=== PATIENT | male | born 1960 | race African-American/Black ===

== ENCOUNTER 2016-12-06 15:49 | Inpatient (IN) | payer OTHER ==
[2016-12-06 17:42] VITALS: BMI 20.5
[2016-12-06] MEDS ORDERED: diazePAM 5 MG TABLET PO ONE (20:05)
[2016-12-06] MEDS ORDERED: LOPERAMIDE HCL 2 MG CAPSULE PO PRN (20:05)
[2016-12-06] MEDS ORDERED: diphenhydrAMINE HCL 50 MG CAPSULE PO PRN (20:05)
[2016-12-06] MEDS ORDERED: MAGNESIUM HYDROX 2400MG/30ML ORAL SUSPENSION 30 ML CUP PO PRN (20:05)
[2016-12-06] MEDS ORDERED: MAGNESIUM CITRATE 300 ML BOTTLE PO PRN (20:05)
[2016-12-06] MEDS ORDERED: guaiFENesin/D-METHORPHAN HB 10 ML UNIT-DOSE CUPS PO PRN (20:05)
[2016-12-06] MEDS ORDERED: ACETAMINOPHEN 325 MG TABLET (FP) PO PRN (20:05)
[2016-12-06] MEDS ORDERED: hydrOXYzine PAMOATE 50 MG CAPSULE (FP) PO PRN (20:05)
[2016-12-06] MEDS ORDERED: P-EPHED 60MG/TRIPROLIDI 2.5MG TABLET PO PRN (20:05)
[2016-12-06] MEDS ORDERED: MENTHOL/PHENOL 1 EACH UD MM PRN (20:05)
[2016-12-06] MEDS ORDERED: MAG HYDROX/AL HYDROX/SIMETH 30 ML UNIT-DOSE CUP PO PRN (20:05)
--- NOTE | 2016-12-06 20:05 | HP ---
CIWA Score - CIWA Score Nausea/Vomitin-Mild Nausea/No Vomiting Muscle Tremors: 4-Moderate,w/Arms Extend Anxiety: 4-Mod. Anxious/Guarded Agitation: 4-Moderately Restless Paroxysmal Sweats: 1-Minimal Palms Moist Orientation: 0-Oriented Tacttile Disturbances: 0-None Auditory Disturbances: 0-None Visual Disturbances: 0-None Headache: 2-Mild CIWA-Ar Total Score: 16 Admission ROS BHS - HPI Chief Complaint: withdrawal sx Allergies/Adverse Reactions: Allergies Allergy/AdvReac Type Severity Reaction Status Date / Time chlordiazepoxide HCl Allergy Severe Swelling Verified 03/09/12 15:52 [From Librium] History of Present Illness: 56 years old male with long history of alcohol asthma copd, hiv positive ppd alcohol induced seizure and depression is admitted to detox Exam Limitations: No Limitations - Ebola screening Have you traveled outside of the country in the last 21 days: No Have you had contact with anyone from an Ebola affected area: No Have you been sick,other than usual withdrawal symptoms: No Do you have a fever: No - Review of Systems Constitutional: Loss of Appetite, Changes in sleep, Unintentional Wgt. Loss, Unexplained wgt Loss EENT: reports: Blurred Vision (eye glasss) Respiratory: reports: SOB with Exertion Cardiac: reports: No Symptoms Reported GI: reports: Nausea, Poor Appetite, Poor Fluid Intake, Abdominal cramping : reports: No Symptoms Reported Musculoskeletal: reports: Back Pain (chronic back pain - muscle spasm -) Integumentary: reports: No Symptoms Reported Neuro: reports: Seizure (10/2016), Tremors Endocrine: reports: No Symptoms Reported Hematology: reports: No Symptoms Reported Psychiatric: reports: Judgement Intact, Orientated x3, Depressed Other Systems: Reviewed and Negative Patient History - Patient Medical History Hx Anemia: No Hx Asthma: Yes Hx Chronic Obstructive Pulmonary Disease (COPD): Yes Hx Cancer: No Hx Cardiac Disorders: No Hx Congestive Heart Failure: No Hx Hypertension: No Hx Hypercholesterolemia: No Hx Pacemaker: No HX Cerebrovascular Accident: No Hx Seizures: Yes (hx of seizures not on meds. Last was in 1984) Hx Dementia: No Hx Diabetes: No Hx Gastrointestinal Disorders: No Hx Liver Disease: No Hx Genitourinary Disorders: No Hx Sexually Transmitted Disorders: No Hx Renal Disease (ESRD): No Hx Thyroid Disease: No Hx Human Immunodeficiency Virus (HIV): Yes (DX POSITIVE ON 11/06/93) Hx Hepatitis C: No Hx Depression: Yes Hx Suicide Attempt: No Hx Bipolar Disorder: No Hx Schizophrenia: No - Patient Surgical History Past Surgical History: No Hx Neurologic Surgery: No Hx Cataract Extraction: No Hx Cardiac Surgery: No Hx Lung Surgery: No Hx Breast Surgery: No Hx Breast Biopsy: No Hx Abdominal Surgery: No Hx Appendectomy: No Hx Cholecystectomy: No Hx Genitourinary Surgery: No Hx Orthopedic Surgery: No - PPD History Previous Implant?: Yes Documented Results: Positive w/o proof Implanted On Prior R Admission?: No PPD to be Administered?: No - Smoking Cessation Smoking history: Former smoker Have you smoked in the past 12 months: No Aproximately how many cigarettes per day: 0 If you are a former smoker, when did you quit?: 5 months ago Hx Chewing Tobacco Use: No Initiated information on smoking cessation: No - Substance & Tx. History Hx Alcohol Use: Yes Hx Substance Use: No Substance Use Type: Alcohol Hx Substance Use Treatment: Yes (07/2016 [facility]) - Substances Abused Alcohol Route: Oral Frequency: Daily Amount used: 1 pint fadi or vodka Age of first use: 11 Date of Last Use: 12/05/16 Family Disease History - Family Disease History Family Disease History: Other: Father () Admission Physical Exam S - Vital Signs Vital Signs: Vital Signs - 24 hr 12/06/16 17:35 Temperature 96.5 F L Pulse Rate 106 H Respiratory 16 Rate Blood Pressure 127/78 - Physical General Appearance: Yes: Appropriately Dressed, Mild Distress, Thin, Tremorous, Irritable, Sweating, Anxious HEENTM: Yes: Hearing grossly Normal, Normal ENT Inspection, Normocephalic, Normal Voice, Other (eye glasses) Respiratory: Yes: Chest Non-Tender, No Respiratory Distress, No Accessory Muscle Use, Wheezing, Hyperresonant, Inspiration Neck: Yes: Supple, Trachea in good position Breast: Yes: Breasts Symetrical Cardiology: Yes: Regular Rhythm, S1, S2, Tachycardia Abdominal: Yes: Non Tender, Soft, Increased Bowel Sounds Genitourinary: Yes: Within Normal Limits Back: Yes: Normal Inspection Musculoskeletal: Yes: full range of Motion, Gait Steady, Back pain Extremities: Yes: Normal Inspection, Normal Range of Motion, Non-Tender, Tremors Neurological: Yes: Fully Oriented, Alert, Motor Strength 5/5, Normal Response, Depressed Affect Integumentary: Yes: Warm Lymphatic: Yes: Within Normal Limits - Diagnostic (1) Asthma Current Visit: Yes Status: Chronic (2) Alcohol dependence with uncomplicated withdrawal Current Visit: Yes Status: Acute (3) COPD (chronic obstructive pulmonary disease) Current Visit: Yes Status: Chronic Qualifiers: COPD type: emphysema Emphysema type: unilateral Qualified Code(s ): J43.0 - Unilateral pulmonary emphysema [MacLeod's syndrome] (4) HIV (human immunodeficiency virus infection) Current Visit: Yes Status: Chronic (5) Positive PPD, treated Current Visit: Yes Status: Resolved (6) Weight loss Current Visit: Yes Status: Acute (7) Seizure Current Visit: Yes Status: Inactive (8) Depression (emotion) Current Visit: Yes Status: Suspected Qualifiers: Depression Type: dysthymia Qualified Code(s): F34.1 - Dysthymic disorder Cleared for Admission S - Detox or Rehab [facility] Level of Care: Medically Managed Detox Regimen/Protocol: Valium [facility] Breath Alcohol Content Breath Alcohol Content: 0 Urine Drug Screen - Results Drug Screen Negative: No Urine Drug Screen Results: TCA-Tricyclic Antidepress
[2016-12-06] MEDS ORDERED: ALBUTEROL SO4 6.7 GM HFA INHALER IH PRN (20:08)
[2016-12-06] MEDS ORDERED: ALBUTEROL SO4 2.5/IPRATROPIUM 0.5 INH SOL 3 ML VIAL.NEB. NEB PRN (20:08)
[2016-12-06] MEDS: diazePAM 5 MG TABLET PO SCH (22:24)
[2016-12-06] MEDS: BUDESONIDE/FORMETEROL FUMARATE 80/4.5 mcg INHALER IH SCH (22:24)
[2016-12-06] MEDS: THIAMINE HCL 100 MG TABLET (FP) PO SCH (22:44)
[2016-12-06 23:13] LABS: URINE APPEARANCE CLEAR; URINE BILIRUBIN NEGATIVE (NEGATIVE); URINE BLOOD NEGATIVE (NEGATIVE); URINE COLOR YELLOW; URINE GLUCOSE (UA) NEGATIVE (NEGATIVE); URINE KETONE NEGATIVE (NEGATIVE); URINE LEUK ESTERASE TRACE (NEGATIVE); URINE NITRITE NEGATIVE (NEGATIVE); URINE PROTEIN NEGATIVE (NEGATIVE); URINE UROBILINOGEN 4.0 E.U/dl mg/dL (0.2-1.0)
[2016-12-06 23:20] LABS: URINE MUCUS RARE; URINE RBC <1 /hpf (0-3); URINE WBC 7 /hpf (3-5)
[2016-12-07] MEDS: diazePAM 5 MG TABLET PO SCH ×3 (05:47→22:24)
[2016-12-07 10:09] LABS: MCH 33.1 pg (25.7-33.7); MCHC 34.6 g/dl (32.0-35.9); MEAN CELL VOLUME 95.8 fl (80-96); MEAN PLT VOLUME 8.6 fl (7.5-11.1); PLATELET COUNT 241 K/MM3 (134-434); RDW 14.7 % (11.9-15.9); WHITE BLOOD COUNT 5.5 K/mm3 (4.0-10.0)
[2016-12-07] MEDS: PRENATAL VITAMINS W/ FOLIC ACID TABLET (FP) PO SCH (10:14)
[2016-12-07] MEDS: PATIENT'S OWN MEDICATION (NON-FORMULARY) (Mometasone/Formoterol [Dulera 200 Mcg/5 Mcg Inha IH SCH ×2 (10:14→22:24)
[2016-12-07] MEDS: PATIENT'S OWN MEDICATION (NON-FORMULARY) (Darunavir/Cobicistat [Prezcobix 800 Mg-150 Mg Ta PO SCH (10:14)
[2016-12-07] MEDS: diazePAM 5 MG TABLET PO PRN (10:15)
[2016-12-07] MEDS: BUDESONIDE/FORMETEROL FUMARATE 80/4.5 mcg INHALER IH SCH (10:17)
--- NOTE | 2016-12-07 10:52 | PN ---
S CIWA - CIWA Score Nausea/Vomitin-No Nausea/No Vomiting Muscle Tremors: 4-Moderate,w/Arms Extend Anxiety: 3 Agitation: 4-Moderately Restless Paroxysmal Sweats: 3 Orientation: 0-Oriented Tacttile Disturbances: 0-None Auditory Disturbances: 0-None Visual Disturbances: 0-None Headache: 0-None Present CIWA-Ar Total Score: 14 BHS Progress Note (SOAP) Subjective: shakes sweats interrupted sleep agitation anxiety nausea Objective: 12/07/16 10:51 Vital Signs Temperature 96.6 F L 12/07/16 10:31 Pulse Rate 105 H 12/07/16 10:31 Respiratory Rate 18 12/07/16 10:31 Blood Pressure 121/85 12/07/16 10:31 O2 Sat by Pulse Oximetry (%) Laboratory Tests 12/06/16 12/07/16 23:00 07:00 WBC 5.5 RBC 3.59 L Hgb 11.9 Hct 34.4 L MCV 95.8 MCH 33.1 MCHC 34.6 RDW 14.7 Plt Count 241 MPV 8.6 Urine Color Yellow Urine Appearance Clear Urine pH 7.0 Ur Specific [place] 1.015 Urine Protein Negative Urine Glucose (UA) Negative Urine Ketones Negative Urine Blood Negative Urine Nitrite Negative Urine Bilirubin Negative Urine Urobilinogen 4.0 e.u/dl Ur Leukocyte Esterase Trace Urine RBC <1 Urine WBC 7 Ur Epithelial Cells Rare Urine Mucus Rare labs pending awake/alert ambulating no acute distress Assessment: 12/07/16 10:51 withdrawal sx Plan: continue detox increase fluids jonathan arreguinn
--- NOTE | 2016-12-07 10:54 | PN ---
S Progress Note Note: discussion with pt regarding the rest of medication for his antiviral regimen; pt states he did not bring his tivicay. pt was advised that during his stay he can be on isentress with the prezcobix he brought in until his detox is completed. Pt states he can take the Isentress and will go back to his tivicay when he gets home.
[2016-12-07 10:56] LABS: ALBUMIN 3.2 g/dl (3.4-5.0); ALK PHOS 80 U/L (45-117); ANION GAP 10 (8-16); BILIRUBIN,TOTAL 1.9 mg/dL (0.2-1.0); CO2 29 mmol/L (21-32); CREATININE 0.7 mg/dL (0.7-1.3); GLUCOSE,RANDOM 79 mg/dL (74-106); SGOT/AST 23 U/L (15-37); SGPT/ALT 15 U/L (12-78); TOT PROT 6.7 g/dl (6.4-8.2)
[2016-12-07] MEDS ORDERED: RALTEGRAVIR POTASSIUM 400 MG TAB PO ONE (11:30)
--- NOTE | 2016-12-07 12:03 | PN ---
BHS Progress Note Note: potassium 2.8; k-dur 40meq x 5 days ordered
[2016-12-07] MEDS: POTASSIUM CHLORIDE TABS 20 MEQ TABLET.ER (FP) PO SCH (12:30)
--- NOTE | 2016-12-07 14:00 | CONSULT ---
[facility] Psychiatric Consult - Data Date of interview: 12/07/16 Admission source: [facility] Identifying data: Readmission to [facility] for this 56 y/o AA male seeking detox treatment on for alcohol dependence.Patient is single,a father of two,domiciled,unemployed and supported on [facility] benefits. Substance Abuse History: Confirmed by patient. Smoking Cessation. Smoking history: Former smoker. Have you smoked in the past 12 months: No. Aproximately how many cigarettes per day: 0. If you are a former smoker, when did you quit?: 5 months ago. Hx Chewing Tobacco Use: No. Initiated information on smoking cessation: No. - Substance & Tx. History. Hx Alcohol Use: Yes. Hx Substance Use: No. Substance Use Type: Alcohol. Hx Substance Use Treatment: Yes (07/2016 [facility] - Substances Abused. Alcohol. Route: Oral. Frequency: Daily. Amount used: 1 pint fadi or vodka. Age of first use: 11. Date of Last Use: 12/05/16 Medical History: Bronchial asthma,COPD,HIV infection since 1993 and a distant history of withdrawal-related seizures. Psychiatric History: Patient denies psychiatric hospitalizations.Mr Moore sees a therapist at the [facility] for supportive therapy.During medical treatment at [facility] a few months ago,the patient was seen by a [facility]ia[facility] psychiatrist and prescribed remeron for insomnia.No history of suicide attempts. Physical/Sexual Abuse/Trauma History: Patient denies. Additional Comment: Urine Drug Screen Results: TCA-Tricyclic Antidepressant.Noted. Mental Status Exam - Mental Status Exam Alert and Oriented to: Time, Place, Person Cognitive Function: Good Patient Appearance: Well Groomed Mood: Hopeful, Euthymic Affect: Appropriate, Normal Range Patient Behavior: Appropriate, Cooperative Speech Pattern: Clear Voice Loudness: Normal Thought Process: Intact, Goal Oriented Thought Disorder: Not Present Hallucinations: Denies Suicidal Ideation: Denies Homicidal Ideation: Denies Insight/Judgement: Poor Sleep: Poorly, Difficulty falling asleep Appetite: Good Muscle strength/Tone: Normal Gait/Station: Normal Psychiatric Findings - Problem List ([place] 1, 2,3) (1) Alcohol dependence with uncomplicated withdrawal Current Visit: Yes Status: Acute (2) Asthma Current Visit: Yes Status: Chronic (3) COPD (chronic obstructive pulmonary disease) Current Visit: Yes Status: Chronic Qualifiers: COPD type: emphysema Emphysema type: unilateral Qualified Code(s ): J43.0 - Unilateral pulmonary emphysema [MacLeod's syndrome] (4) HIV (human immunodeficiency virus infection) Current Visit: Yes Status: Chronic (5) EMPHYSEMA Current Visit: Yes Status: Active (6) Insomnia Current Visit: Yes Status: Acute - Initial Treatment Plan Initial Treatment Plan: Psychoeducation.Detoxification.Remeron 15 mg po hs ( confirmed by recent pharmacy claims).Side effects/benefits discussed with the patient.He agrees with careplan.Observation.
[2016-12-07] MEDS: THIAMINE HCL 100 MG TABLET (FP) PO SCH (22:23)
[2016-12-07] MEDS: RALTEGRAVIR POTASSIUM 400 MG TAB PO SCH (22:23)
[2016-12-07] MEDS: MIRTAZAPINE 15 MG TABLET (FP) PO SCH (22:23)
--- NOTE | 2016-12-08 10:05 | PN ---
[facility] CIWA - CIWA Score Nausea/Vomitin-No Nausea/No Vomiting Muscle Tremors: 3 Anxiety: 3 Agitation: 3 Paroxysmal Sweats: 3 Orientation: 0-Oriented Tacttile Disturbances: 0-None Auditory Disturbances: 0-None Visual Disturbances: 0-None Headache: 0-None Present CIWA-Ar Total Score: 12 S Progress Note (SOAP) Subjective: agitation sweats interrupted Objective: 12/08/16 10:30 Vital Signs Temperature 97.2 F L 12/08/16 06:41 Pulse Rate 94 H 12/08/16 10:08 Respiratory Rate 20 12/08/16 10:08 Blood Pressure 134/96 12/08/16 10:08 O2 Sat by Pulse Oximetry (%) Laboratory Tests 12/06/16 12/07/16 12/07/16 23:00 07:00 07:00 WBC 5.5 RBC 3.59 L Hgb 11.9 Hct 34.4 L MCV 95.8 MCH 33.1 MCHC 34.6 RDW 14.7 Plt Count 241 MPV 8.6 Sodium 140 Potassium 2.8 L* Chloride 101 Carbon Dioxide 29 Anion Gap 10 BUN 6 L Creatinine 0.7 Creat Clearance w eGFR > 60 Random Glucose 79 Calcium 9.0 Total Bilirubin 1.9 H D AST 23 D ALT 15 Alkaline Phosphatase 80 Total Protein 6.7 Albumin 3.2 L Urine Color Yellow Urine Appearance Clear Urine pH 7.0 Ur Specific [place] 1.015 Urine Protein Negative Urine Glucose (UA) Negative Urine Ketones Negative Urine Blood Negative Urine Nitrite Negative Urine Bilirubin Negative Urine Urobilinogen 4.0 e.u/dl Ur Leukocyte Esterase Trace Urine RBC <1 Urine WBC 7 Ur Epithelial Cells Rare Urine Mucus Rare RPR Titer 12/07/16 07:00 WBC RBC Hgb Hct MCV MCH MCHC RDW Plt Count MPV Sodium Potassium Chloride Carbon Dioxide Anion Gap BUN Creatinine Creat Clearance w eGFR Random Glucose Calcium Total Bilirubin AST ALT Alkaline Phosphatase Total Protein Albumin Urine Color Urine Appearance Urine pH Ur Specific [place] Urine Protein Urine Glucose (UA) Urine Ketones Urine Blood Urine Nitrite Urine Bilirubin Urine Urobilinogen Ur Leukocyte Esterase Urine RBC Urine WBC Ur Epithelial Cells Urine Mucus RPR Titer Nonreactive potassium 2.8; k-dur 40meq ordered cbc ordered awake/alert ambulating no acute distress Assessment: 12/08/16 10:31 withdrawal sx Plan: continue detox increase fluids f/u pending labs
[2016-12-08] MEDS: PRENATAL VITAMINS W/ FOLIC ACID TABLET (FP) PO SCH (10:14)
[2016-12-08] MEDS: PATIENT'S OWN MEDICATION (NON-FORMULARY) (Mometasone/Formoterol [Dulera 200 Mcg/5 Mcg Inha IH SCH ×2 (10:14→22:28)
[2016-12-08] MEDS: PATIENT'S OWN MEDICATION (NON-FORMULARY) (Darunavir/Cobicistat [Prezcobix 800 Mg-150 Mg Ta PO SCH (10:15)
[2016-12-08] MEDS: POTASSIUM CHLORIDE TABS 20 MEQ TABLET.ER (FP) PO SCH (10:15)
[2016-12-08] MEDS: diazePAM 5 MG TABLET PO SCH ×2 (10:15→22:27)
[2016-12-08] MEDS: RALTEGRAVIR POTASSIUM 400 MG TAB PO SCH ×2 (10:15→22:27)
[2016-12-08] MEDS: diazePAM 5 MG TABLET PO PRN (17:13)
[2016-12-08] MEDS: THIAMINE HCL 100 MG TABLET (FP) PO SCH (22:27)
[2016-12-08] MEDS: MIRTAZAPINE 15 MG TABLET (FP) PO SCH (22:27)
--- NOTE | 2016-12-09 09:25 | PN ---
[facility] Progress Note Note: pt states his mother is sick with a possible stroke and wants to signed out AMA. pt was advised that blood was drawn this morning to make sure that his potassium has increased since k-dur was ordered however, pt refused to stay for results but indicated that if there are any concerns to please call him at [phone] (home). pt also states that his potassium has been low in the past and has potassium at home.
--- NOTE | 2016-12-09 09:30 | DS ---
[facility] Detox Discharge Summary Admission Date: 12/06/16 - History Present History: Alcohol Dependence - Physical Exam Results Vital Signs: Vital Signs Temperature 98.1 F 12/09/16 06:44 Pulse Rate 89 12/09/16 06:44 Respiratory Rate 18 12/09/16 06:44 Blood Pressure 109/69 12/09/16 06:44 O2 Sat by Pulse Oximetry (%) - Medication Discharge Medications: Ambulatory Orders Albuterol Sulfate Inhaler - [Ventolin HFA Inhaler -] 2 inh IH Q4H PRN 03/09/12 Darunavir/Cobicistat [Prezcobix 800 mg-150 mg Tablet] 1 each PO DAILY 12/06/16 Mometasone/Formoterol [Dulera 200 Mcg/5 Mcg Inhaler] 2 inh IH BID 12/06/16 Potassium Chloride [K-Dur -] 20 meq PO BID 12/06/16 Mirtazapine [Remeron -] 15 mg PO HS #30 tablet 12/07/16 - Diagnosis (1) Alcohol dependence with uncomplicated withdrawal Current Visit: Yes Status: Chronic (2) Asthma Current Visit: Yes Status: Chronic (3) COPD (chronic obstructive pulmonary disease) Current Visit: Yes Status: Chronic Qualifiers: COPD type: emphysema Emphysema type: unilateral Qualified Code(s ): J43.0 - Unilateral pulmonary emphysema [MacLeod's syndrome] (4) HIV (human immunodeficiency virus infection) Current Visit: Yes Status: Chronic (5) Depression (emotion) Current Visit: Yes Status: Suspected Qualifiers: Depression Type: dysthymia Qualified Code(s): F34.1 - Dysthymic disorder (6) Positive PPD, treated Current Visit: Yes Status: Chronic (7) Seizure Current Visit: Yes Status: Inactive (8) EMPHYSEMA Current Visit: Yes Status: Chronic (9) Seizure disorder Current Visit: No Status: Suspected - AMA Did Patient Leave Against Medical Advice: Yes (going home)
[2016-12-09 09:37] VITALS: BP 122/81; PULSE 111; TEMP 95.4
[2016-12-09] MEDS: POTASSIUM CHLORIDE TABS 20 MEQ TABLET.ER (FP) PO SCH (09:47)
[2016-12-09] MEDS: diazePAM 5 MG TABLET PO SCH (09:47)
[2016-12-09] MEDS: PRENATAL VITAMINS W/ FOLIC ACID TABLET (FP) PO SCH (09:47)
[2016-12-09] MEDS: PATIENT'S OWN MEDICATION (NON-FORMULARY) (Darunavir/Cobicistat [Prezcobix 800 Mg-150 Mg Ta PO SCH (09:47)
[2016-12-09] MEDS: RALTEGRAVIR POTASSIUM 400 MG TAB PO SCH (09:47)
[2016-12-09 10:23] LABS: ALBUMIN 3.2 g/dl (3.4-5.0); ALK PHOS 111 U/L (45-117); ANION GAP 6 (8-16); BILIRUBIN,TOTAL 0.3 mg/dL (0.2-1.0); CALCIUM 9.8 mg/dL (8.5-10.1); CO2 30 mmol/L (21-32); CREATININE 0.6 mg/dL (0.7-1.3); GLUCOSE,RANDOM 88 mg/dL (74-106); SGOT/AST 20 U/L (15-37); SGPT/ALT 16 U/L (12-78); TOT PROT 6.5 g/dl (6.4-8.2)
--- NOTE | 2016-12-09 11:29 | PN ---
[facility] Progress Note Note: Laboratory Tests 12/06/16 12/07/16 12/07/16 23:00 07:00 07:00 WBC 5.5 RBC 3.59 L Hgb 11.9 Hct 34.4 L MCV 95.8 MCH 33.1 MCHC 34.6 RDW 14.7 Plt Count 241 MPV 8.6 Sodium 140 Potassium 2.8 L* Chloride 101 Carbon Dioxide 29 Anion Gap 10 BUN 6 L Creatinine 0.7 Creat Clearance w eGFR > 60 Random Glucose 79 Calcium 9.0 Total Bilirubin 1.9 H D AST 23 D ALT 15 Alkaline Phosphatase 80 Total Protein 6.7 Albumin 3.2 L Urine Color Yellow Urine Appearance Clear Urine pH 7.0 Ur Specific [place] 1.015 Urine Protein Negative Urine Glucose (UA) Negative Urine Ketones Negative Urine Blood Negative Urine Nitrite Negative Urine Bilirubin Negative Urine Urobilinogen 4.0 e.u/dl Ur Leukocyte Esterase Trace Urine RBC <1 Urine WBC 7 Ur Epithelial Cells Rare Urine Mucus Rare RPR Titer 12/07/16 12/09/16 07:00 07:00 WBC RBC Hgb Hct MCV MCH MCHC RDW Plt Count MPV Sodium 143 Potassium 4.1 D Chloride 107 Carbon Dioxide 30 Anion Gap 6 L BUN 8 D Creatinine 0.6 L Creat Clearance w eGFR > 60 Random Glucose 88 Calcium 9.8 Total Bilirubin 0.3 D AST 20 ALT 16 Alkaline Phosphatase 111 D Total Protein 6.5 Albumin 3.2 L Urine Color Urine Appearance Urine pH Ur Specific [place] Urine Protein Urine Glucose (UA) Urine Ketones Urine Blood Urine Nitrite Urine Bilirubin Urine Urobilinogen Ur Leukocyte Esterase Urine RBC Urine WBC Ur Epithelial Cells Urine Mucus RPR Titer Nonreactive repeated potassium lab value improved. will advise pt of result.
--- NOTE | 2016-12-09 11:38 | EKG ---
Test Reason : Blood Pressure : / mmHG Vent. Rate : 089 BPM Atrial Rate : 089 BPM P-R Int : 166 ms QRS Dur : 080 ms QT Int : 386 ms P-R-T Axes : 077 069 068 degrees QTc Int : 469 ms NORMAL SINUS RHYTHM POSSIBLE LEFT ATRIAL ENLARGEMENT BORDERLINE ECG NO PREVIOUS ECGS AVAILABLE Confirmed by MAY PARADA, JIM ([id number]) on 12/09/2016 11:38:05 AM Referred By: Confirmed By:JIM OLVERA MD
[2016-12-10] MEDS ORDERED: diazePAM 5 MG TABLET PO SCH (10:00)
== END 2016-12-09 10:03 | disposition left against medical advice (07) | DRG 770 ==
LOC: YASAS 15:49 → Y6N 21:07
PROVIDERS: ADMIT Internal Medicine Addiction Medicine; ATTEND Internal Medicine Addiction Medicine
PROC: HZ2ZZZZ Detoxification Services for Substance Abuse Treatment (ICD-10-PCS; principal; 2016-12-03)
DX: F10.230 Alcohol dependence with withdrawal, uncomplicated (principal); F34.1 Dysthymic disorder; J45.998 Other asthma; J43.0 Unilateral pulmonary emphysema [MacLeod's syndrome]; B20 Human immunodeficiency virus [HIV] disease; R76.11 Nonspecific reaction to tuberculin skin test without active tuberculosis; R00.0 Tachycardia, unspecified; Z86.69 Personal history of other diseases of the nervous system and sense organs; Z87.891 Personal history of nicotine dependence
CPT/HCPCS: 36415; 71020-TC; 80053; 81003; 81015; 85027; 86593; 93005; 93010

== ENCOUNTER 2017-06-28 10:17 | Inpatient (IN) | payer OTHER ==
--- NOTE | 2017-06-28 13:24 | HP ---
Admission [facility] Chief Complaint: I NEED HELP FOR ALCOHOL TREATMENT Allergies/Adverse Reactions: Allergies Allergy/AdvReac Type Severity Reaction Status Date / Time chlordiazepoxide HCl Allergy Severe Swelling Verified 06/28/17 13:12 [From Librium] History of Present Illness: THIS 56 YEARS OLD MALE WITH ALCOHOL DEPENDENCE,SEEKING HELP,ADMITTED IN [facility] 06/20/17 TO 06/22/17 HIV SINCE 1993 ASTHMA DEPRESSION NICOTINE DEPENDENCE LONGEST PERIOD OFF SOBRIETY 4 YEARS - Ebola screening Have you traveled outside of the country in the last 21 days: No Have you had contact with anyone from an Ebola affected area: No Have you been sick,other than usual withdrawal symptoms: No Do you have a fever: No - Review of Systems Constitutional: No Symptoms Reported EENT: reports: No Symptoms Reported Respiratory: reports: No Symptoms reported, Other (ASTHMA) Cardiac: reports: No Symptoms Reported GI: reports: No Symptoms Reported : reports: No Symptoms Reported Musculoskeletal: reports: No Symptoms Reported Integumentary: reports: No Symptoms Reported Neuro: reports: No Symptoms reported Endocrine: reports: No Symptoms Reported Hematology: reports: No Symptoms Reported, Other (HIV) Psychiatric: reports: No Sypmtoms Reported, Judgement Intact, Mood/Affect Appropiate, Orientated x3, Depressed Patient History - Patient Medical History Hx Anemia: No Hx Asthma: Yes Hx Chronic Obstructive Pulmonary Disease (COPD): Yes Hx Cancer: No Hx Cardiac Disorders: No Hx Congestive Heart Failure: No Hx Hypertension: No Hx Hypercholesterolemia: No Hx Pacemaker: No HX Cerebrovascular Accident: No Hx Seizures: Yes (hx of seizures not on meds. Last was in 1982) Hx Dementia: No Hx Diabetes: No Hx Gastrointestinal Disorders: No Hx Liver Disease: No Hx Genitourinary Disorders: No Hx Sexually Transmitted Disorders: No Hx Renal Disease (ESRD): No Hx Thyroid Disease: No Hx Human Immunodeficiency Virus (HIV): Yes (DX POSITIVE ON 11/06/93) Hx Hepatitis C: No Hx Depression: Yes Hx Suicide Attempt: No Hx Bipolar Disorder: No Hx Schizophrenia: No Other Medical History: ANXIETY,NO SUICIDAL,NO HOMICIDAL - Patient Surgical History Past Surgical History: No Hx Neurologic Surgery: No Hx Cataract Extraction: No Hx Cardiac Surgery: No Hx Lung Surgery: No Hx Breast Surgery: No Hx Breast Biopsy: No Hx Abdominal Surgery: No Hx Appendectomy: No Hx Cholecystectomy: No Hx Genitourinary Surgery: No Hx Section: No Hx Orthopedic Surgery: No Anesthesia Reaction: No - PPD History Previous Implant?: Yes Documented Results: Positive w/o proof PPD to be Administered?: No - Smoking Cessation Smoking history: Former smoker Have you smoked in the past 12 months: No Aproximately how many cigarettes per day: 0 If you are a former smoker, when did you quit?: 5 months ago Hx Chewing Tobacco Use: No Initiated information on smoking cessation: Yes 'Breaking Loose' booklet given: 06/28/17 - Substance & Tx. History Hx Alcohol Use: Yes Hx Substance Use: Yes Substance Use Type: Alcohol Hx Substance Use Treatment: Yes ([facility] 06/20/17 TO 06/22/17) - Substances Abused Alcohol Route: Oral Frequency: Daily Amount used: 1 PINT LIQUOR Age of first use: 11 Date of Last Use: 06/28/17 Family Disease History - Family Disease History Family Disease History: Other: Father () Admission Physical Exam [facility] - Vital Signs Vital Signs: Vital Signs - 24 hr 06/28/17 11:36 Temperature 98.2 F Pulse Rate 97 H Respiratory 20 Rate Blood Pressure 121/76 - Physical General Appearance: Yes: Within Normal Limits HEENTM: Yes: Normocephalic, [place], Pharynx Normal Respiratory: Yes: Lungs Clear, Normal Breath Sounds, No Respiratory Distress Neck: Yes: Within Normal Limits Breast: Yes: Within Normal Limits Cardiology: Yes: Within Normal Limits, Regular Rhythm, Regular Rate, S1, S2 Abdominal: Yes: Within Normal Limits, Normal Bowel Sounds, Non Tender, Flat, Soft Genitourinary: Yes: Within Normal Limits Back: Yes: Within Normal Limits Musculoskeletal: Yes: Within Normal Limits Extremities: Yes: Within Normal Limits Neurological: Yes: Within Normal Limits, matrix plater II-XII NML intact, Fully Oriented, Alert Integumentary: Yes: Within Normal Limits Lymphatic: Yes: Within Normal Limits - Diagnostic (1) Weight loss Current Visit: No Status: Acute (2) Asthma Current Visit: No Status: Chronic (3) HIV (human immunodeficiency virus infection) Current Visit: No Status: Chronic (4) Positive PPD, treated Current Visit: No Status: Chronic (5) Seizure disorder Current Visit: No Status: Suspected (6) Alcohol dependence Current Visit: Yes Status: Acute (7) Nicotine dependence Current Visit: Yes Status: Acute Cleared for Admission [facility] - Detox or Rehab Claeared for Rehab Admission: Yes [facility] Breath Alcohol Content Breath Alcohol Content: 0 Urine Drug Screen - Results Drug Screen Negative: No Urine Drug Screen Results: BZO-Benzodiazepines, TCA-Tricyclic Antidepress Inpatient Rehab Admission - Initial Determination Are CD services needed?: Yes Free of communicable disease: Yes Not in need of hospitalization: Yes - Rehab Admission Criteria Previous failed treatment: Yes Poor recovery environment: Yes Comorbidities: Yes Lacks judgement: No Patient is meeting Inpatient Rehab admission criteria:: Yes
[2017-06-28] MEDS ORDERED: MENTHOL/PHENOL 1 EACH UD MM PRN (13:34)
[2017-06-28] MEDS ORDERED: MAGNESIUM CITRATE 300 ML BOTTLE PO PRN (13:34)
[2017-06-28] MEDS ORDERED: P-EPHED 60MG/TRIPROLIDI 2.5MG TABLET PO PRN (13:34)
[2017-06-28] MEDS ORDERED: MAGNESIUM HYDROX 2400MG/30ML ORAL SUSPENSION 30 ML CUP PO PRN (13:34)
[2017-06-28] MEDS ORDERED: MAG HYDROX/AL HYDROX/SIMETH 30 ML UNIT-DOSE CUP PO PRN (13:34)
[2017-06-28] MEDS ORDERED: LOPERAMIDE HCL 2 MG CAPSULE PO PRN (13:34)
[2017-06-28] MEDS ORDERED: guaiFENesin/D-METHORPHAN HB 10 ML UNIT-DOSE CUPS PO PRN (13:34)
[2017-06-28] MEDS ORDERED: IBUPROFEN 400 MG TABLET (FP) PO PRN (13:34)
--- NOTE | 2017-06-28 13:49 | PN ---
[facility] Progress Note Note: VERIFY WITH PATIENT PHARMACIST PATIENT HAS PRESCRIPTION FILLED FOR TIVIVAY AND PREZCOBIX ON 06/20/17, PATIENT STATED HAS MEDICATIONS AT HOME,HAS BEEN TAKING MEDICATIONS DAILY
[2017-06-28 15:48] LABS: HEMATOCRIT 38.8 % (35.4-49); HEMOGLOBIN 13.4 GM/dL (11.7-16.9); MCH 36.6 pg (25.7-33.7); MCHC 34.5 g/dl (32.0-35.9); MEAN PLT VOLUME 8.9 fl (7.5-11.1); PLATELET COUNT 293 K/MM3 (134-434); RBC 3.66 M/mm3 (4.00-5.60); WHITE BLOOD COUNT 5.6 K/mm3 (4.0-10.0)
[2017-06-28 16:01] LABS: URINE APPEARANCE CLEAR; URINE BLOOD NEGATIVE (NEGATIVE); URINE COLOR AMBER; URINE GLUCOSE (UA) NEGATIVE (NEGATIVE); URINE KETONE NEGATIVE (NEGATIVE); URINE LEUK ESTERASE NEGATIVE (NEGATIVE); URINE NITRITE NEGATIVE (NEGATIVE); URINE UROBILINOGEN 4.0 E.U/dl mg/dL (0.2-1.0)
[2017-06-28] MEDS: ALBUTEROL SO4 18 GM HFA INHALER IH PRN (16:11)
[2017-06-28 16:36] LABS: URINE PROTEIN 1+ (NEGATIVE)
[2017-06-28 17:09] LABS: EPI CELLS RARE /HPF (FEW); URINE BACTERIA RARE /hpf (NONE SEEN); URINE HYALINE CAST 3 /lpf; URINE MUCUS MANY
[2017-06-28 17:10] LABS: ALBUMIN 3.5 g/dl (3.4-5.0); ANION GAP 10 (8-16); CALCIUM 9.1 mg/dL (8.5-10.1); CHLORIDE 103 mmol/L (98-107); CO2 27 mmol/L (21-32); CREATININE 0.9 mg/dL (0.7-1.3); GLUCOSE,RANDOM 81 mg/dL (74-106); POTASSIUM 3.9 mmol/L (3.5-5.1); SGOT/AST 25 U/L (15-37); SGPT/ALT 10 U/L (12-78); SODIUM 140 mmol/L (136-145); TOT PROT 7.6 g/dl (6.4-8.2)
[2017-06-28 17:12] LABS: ALK PHOS 118 U/L (45-117); BILIRUBIN,TOTAL 1.8 mg/dL (0.2-1.0); BLOOD UREA NITROGEN 6 mg/dL (7-18)
[2017-06-28] MEDS: THIAMINE HCL 100 MG TABLET (FP) PO SCH (21:40)
[2017-06-28] MEDS: BUDESONIDE/FORMETEROL FUMARATE 160/4.5 mcg INHALER IH SCH (21:40)
--- NOTE | 2017-06-29 09:59 | EKG ---
Test Reason : Blood Pressure : / mmHG Vent. Rate : 108 BPM Atrial Rate : 108 BPM P-R Int : 164 ms QRS Dur : 068 ms QT Int : 360 ms P-R-T Axes : 080 067 078 degrees QTc Int : 482 ms SINUS TACHYCARDIA POSSIBLE LEFT ATRIAL ENLARGEMENT BORDERLINE ECG WHEN COMPARED WITH ECG OF 06-DEC-2016 20:47, T WAVE AMPLITUDE HAS DECREASED IN LATERAL LEADS Confirmed by TWIN PARADA, WILLIAM ([id number]) on 06/29/2017 9:59:16 AM Referred By: Kinsey MEADOWS Confirmed By:WILLIAM MURCIA MD
[2017-06-29] MEDS ORDERED: DOLUTEGRAVIR SODIUM 50 MG TABLET PO SCH (10:00)
[2017-06-29] MEDS ORDERED: SULFAMETHOXAZOLE/TRIMETHOPRIM 800MG/160MG D.S. TABLET PO SCH (10:00)
[2017-06-29] MEDS: PRENATAL VITAMINS W/ FOLIC ACID TABLET (FP) PO SCH (10:38)
[2017-06-29] MEDS: DARUNAVIR 800 MG/COBICISTAT 150MG TABLET PO SCH (10:39)
[2017-06-29] MEDS: BUDESONIDE/FORMETEROL FUMARATE 160/4.5 mcg INHALER IH SCH ×2 (10:40→21:54)
--- NOTE | 2017-06-29 11:40 | HP ---
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 Psychiatric History: Patient denies history of psychiatric hospitalizations, reports he was seen by a psychiatrist(C/L) at at [facility] while at the medical floor in 2017 and prescribed Remeron for insomnia, patient reports he not on any medications currently and states he feels fine, sleeping well and appetite is good. Physical/Sexual Abuse/Trauma History: Denies history of sexual, physical and verbal abuse. Additional Comment: longest period of abstinence 4 years. Vital Signs: Vital Signs - 24 hr 06/28/17 06/29/17 06/29/17 11:36 00:45 03:30 Temperature 98.2 F Pulse Rate 97 H Respiratory 20 18 18 Rate Blood Pressure 121/76 06/29/17 06:59 Temperature 98.9 F Pulse Rate 101 H Respiratory 19 Rate Blood Pressure 97/65 Allergies/Adverse Reactions: Allergies Allergy/AdvReac Type Severity Reaction Status Date / Time chlordiazepoxide HCl Allergy Severe Swelling Verified 06/28/17 13:12 [From Librium] Date of last physical exam: 06/28/17 Concur with the findings of this exam: Yes - Substance Abuse/Tx History Hx Alcohol Use: Yes (1 pint of wine daily) Hx Substance Use: No Substance Use Type: Alcohol Hx Substance Use Treatment: Yes ([facility] detox/rehab in 2010) Mental Status Exam - Mental Status Exam Alert and Oriented to: Time, Place, Person Cognitive Function: Grossly Intact Patient Appearance: Well Groomed Mood: Hopeful Affect: Appropriate, Mood Congruent Patient Behavior: Appropriate, Cooperative Speech Pattern: Clear, Appropriate Voice Loudness: Normal Thought Process: Intact, Goal Oriented Thought Disorder: Not Present Hallucinations: Denies Suicidal Ideation: Denies Homicidal Ideation: Denies Insight/Judgement: Fair Sleep: Fair Appetite: Good Muscle strength/Tone: Normal Gait/Station: Normal Psychiatric Findings - Problem List ([place] 1, 2,3) (1) Alcohol dependence Current Visit: Yes Status: Acute (2) Nicotine dependence Current Visit: Yes Status: Acute (3) Asthma Current Visit: No Status: Chronic (4) COPD (chronic obstructive pulmonary disease) Current Visit: No Status: Chronic Qualifiers: COPD type: emphysema Emphysema type: unilateral Qualified Code(s): J43.0 - Unilateral pulmonary emphysema [MacLeod's syndrome] (5) HIV (human immunodeficiency virus infection) Current Visit: No Status: Chronic - Initial Treatment Plan Initial Treatment Plan: Supportive therapy, psycheducations, monitor progress.
--- NOTE | 2017-06-29 11:52 | EKG ---
Test Reason : Blood Pressure : / mmHG Vent. Rate : 106 BPM Atrial Rate : 106 BPM P-R Int : 160 ms QRS Dur : 066 ms QT Int : 348 ms P-R-T Axes : 081 075 082 degrees QTc Int : 462 ms SINUS TACHYCARDIA POSSIBLE LEFT ATRIAL ENLARGEMENT BORDERLINE ECG WHEN COMPARED WITH ECG OF 28-JUN-2017 15:48, NO SIGNIFICANT CHANGE WAS FOUND Confirmed by DAXA PARADA, CURTIS ([id number]) on 06/29/2017 11:52:02 AM Referred By: Kinsey MEADOWS Confirmed By:CURTIS MITTAL MD
[2017-06-29] MEDS: SULFAMETHOXAZOLE/TRIMETHOPRIM 800MG/160MG D.S. TABLET PO SCH (16:01)
[2017-06-29] MEDS: THIAMINE HCL 100 MG TABLET (FP) PO SCH (21:52)
[2017-06-30] MEDS: PRENATAL VITAMINS W/ FOLIC ACID TABLET (FP) PO SCH (10:18)
[2017-06-30] MEDS: SULFAMETHOXAZOLE/TRIMETHOPRIM 800MG/160MG D.S. TABLET PO SCH (10:19)
[2017-06-30] MEDS: BUDESONIDE/FORMETEROL FUMARATE 160/4.5 mcg INHALER IH SCH ×2 (10:19→21:34)
[2017-06-30] MEDS: DOLUTEGRAVIR SODIUM 50 MG TABLET PO SCH (10:21)
[2017-06-30] MEDS: DARUNAVIR 800 MG/COBICISTAT 150MG TABLET PO SCH (10:21)
[2017-06-30] MEDS: THIAMINE HCL 100 MG TABLET (FP) PO SCH (21:34)
[2017-07-01] MEDS: PRENATAL VITAMINS W/ FOLIC ACID TABLET (FP) PO SCH (09:52)
[2017-07-01] MEDS: BUDESONIDE/FORMETEROL FUMARATE 160/4.5 mcg INHALER IH SCH ×2 (09:52→21:37)
[2017-07-01] MEDS: SULFAMETHOXAZOLE/TRIMETHOPRIM 800MG/160MG D.S. TABLET PO SCH (09:52)
[2017-07-01] MEDS: DOLUTEGRAVIR SODIUM 50 MG TABLET PO SCH (09:53)
[2017-07-01] MEDS: DARUNAVIR 800 MG/COBICISTAT 150MG TABLET PO SCH (09:54)
[2017-07-01] MEDS: THIAMINE HCL 100 MG TABLET (FP) PO SCH (21:37)
[2017-07-01] MEDS: ACETAMINOPHEN 325 MG TABLET (FP) PO PRN (21:38)
[2017-07-02] MEDS: ALBUTEROL SO4 18 GM HFA INHALER IH PRN (07:59)
[2017-07-02] MEDS: BUDESONIDE/FORMETEROL FUMARATE 160/4.5 mcg INHALER IH SCH ×2 (10:21→21:55)
[2017-07-02] MEDS: PRENATAL VITAMINS W/ FOLIC ACID TABLET (FP) PO SCH (10:22)
[2017-07-02] MEDS: DOLUTEGRAVIR SODIUM 50 MG TABLET PO SCH (10:22)
[2017-07-02] MEDS: SULFAMETHOXAZOLE/TRIMETHOPRIM 800MG/160MG D.S. TABLET PO SCH (10:22)
[2017-07-02] MEDS: DARUNAVIR 800 MG/COBICISTAT 150MG TABLET PO SCH (10:23)
[2017-07-02] MEDS: THIAMINE HCL 100 MG TABLET (FP) PO SCH (21:54)
[2017-07-02] MEDS: ACETAMINOPHEN 325 MG TABLET (FP) PO PRN (21:55)
[2017-07-03] MEDS: BUDESONIDE/FORMETEROL FUMARATE 160/4.5 mcg INHALER IH SCH ×2 (10:13→21:50)
[2017-07-03] MEDS: SULFAMETHOXAZOLE/TRIMETHOPRIM 800MG/160MG D.S. TABLET PO SCH (10:14)
[2017-07-03] MEDS: PRENATAL VITAMINS W/ FOLIC ACID TABLET (FP) PO SCH (10:14)
[2017-07-03] MEDS: DARUNAVIR 800 MG/COBICISTAT 150MG TABLET PO SCH (10:14)
[2017-07-03] MEDS: DOLUTEGRAVIR SODIUM 50 MG TABLET PO SCH (10:14)
[2017-07-03] MEDS: ALBUTEROL SO4 18 GM HFA INHALER IH PRN (17:47)
[2017-07-03] MEDS: ACETAMINOPHEN 325 MG TABLET (FP) PO PRN (17:51)
[2017-07-03] MEDS: THIAMINE HCL 100 MG TABLET (FP) PO SCH (21:50)
[2017-07-04] MEDS: SULFAMETHOXAZOLE/TRIMETHOPRIM 800MG/160MG D.S. TABLET PO SCH (11:03)
[2017-07-04] MEDS: PRENATAL VITAMINS W/ FOLIC ACID TABLET (FP) PO SCH (11:03)
[2017-07-04] MEDS: BUDESONIDE/FORMETEROL FUMARATE 160/4.5 mcg INHALER IH SCH ×2 (11:04→21:49)
[2017-07-04] MEDS: DARUNAVIR 800 MG/COBICISTAT 150MG TABLET PO SCH (13:03)
[2017-07-04] MEDS: DOLUTEGRAVIR SODIUM 50 MG TABLET PO SCH (13:03)
[2017-07-04] MEDS: ACETAMINOPHEN 325 MG TABLET (FP) PO PRN ×2 (15:13→21:48)
[2017-07-04] MEDS: THIAMINE HCL 100 MG TABLET (FP) PO SCH (21:49)
[2017-07-05] MEDS: DARUNAVIR 800 MG/COBICISTAT 150MG TABLET PO SCH (09:48)
[2017-07-05] MEDS: PRENATAL VITAMINS W/ FOLIC ACID TABLET (FP) PO SCH (09:48)
[2017-07-05] MEDS: SULFAMETHOXAZOLE/TRIMETHOPRIM 800MG/160MG D.S. TABLET PO SCH (09:48)
[2017-07-05] MEDS: DOLUTEGRAVIR SODIUM 50 MG TABLET PO SCH (09:54)
[2017-07-05] MEDS: BUDESONIDE/FORMETEROL FUMARATE 160/4.5 mcg INHALER IH SCH ×2 (09:54→21:39)
[2017-07-05] MEDS: ALBUTEROL SO4 18 GM HFA INHALER IH PRN (20:52)
[2017-07-05] MEDS: hydrOXYzine PAMOATE 25 MG CAPSULE (FP) PO PRN (21:38)
[2017-07-05] MEDS: THIAMINE HCL 100 MG TABLET (FP) PO SCH (21:39)
[2017-07-06] MEDS: BUDESONIDE/FORMETEROL FUMARATE 160/4.5 mcg INHALER IH SCH ×2 (09:49→21:37)
[2017-07-06] MEDS: SULFAMETHOXAZOLE/TRIMETHOPRIM 800MG/160MG D.S. TABLET PO SCH (09:49)
[2017-07-06] MEDS: PRENATAL VITAMINS W/ FOLIC ACID TABLET (FP) PO SCH (09:49)
[2017-07-06] MEDS: DOLUTEGRAVIR SODIUM 50 MG TABLET PO SCH (09:49)
[2017-07-06] MEDS: DARUNAVIR 800 MG/COBICISTAT 150MG TABLET PO SCH (09:49)
[2017-07-06] MEDS: hydrOXYzine PAMOATE 25 MG CAPSULE (FP) PO PRN (21:37)
[2017-07-06] MEDS: THIAMINE HCL 100 MG TABLET (FP) PO SCH (21:37)
[2017-07-07] MEDS: SULFAMETHOXAZOLE/TRIMETHOPRIM 800MG/160MG D.S. TABLET PO SCH (10:03)
[2017-07-07] MEDS: PRENATAL VITAMINS W/ FOLIC ACID TABLET (FP) PO SCH (10:03)
[2017-07-07] MEDS: BUDESONIDE/FORMETEROL FUMARATE 160/4.5 mcg INHALER IH SCH ×2 (10:05→22:08)
[2017-07-07] MEDS: DOLUTEGRAVIR SODIUM 50 MG TABLET PO SCH (10:05)
[2017-07-07] MEDS: DARUNAVIR 800 MG/COBICISTAT 150MG TABLET PO SCH (10:06)
[2017-07-07] MEDS: THIAMINE HCL 100 MG TABLET (FP) PO SCH (22:08)
[2017-07-07] MEDS: hydrOXYzine PAMOATE 25 MG CAPSULE (FP) PO PRN (22:09)
[2017-07-08] MEDS: SULFAMETHOXAZOLE/TRIMETHOPRIM 800MG/160MG D.S. TABLET PO SCH (10:32)
[2017-07-08] MEDS: PRENATAL VITAMINS W/ FOLIC ACID TABLET (FP) PO SCH (10:32)
[2017-07-08] MEDS: BUDESONIDE/FORMETEROL FUMARATE 160/4.5 mcg INHALER IH SCH ×2 (10:33→21:37)
[2017-07-08] MEDS: ALBUTEROL SO4 18 GM HFA INHALER IH PRN ×2 (10:33→18:40)
[2017-07-08] MEDS: DARUNAVIR 800 MG/COBICISTAT 150MG TABLET PO SCH (10:34)
[2017-07-08] MEDS: DOLUTEGRAVIR SODIUM 50 MG TABLET PO SCH (10:35)
[2017-07-08] MEDS: ACETAMINOPHEN 325 MG TABLET (FP) PO PRN (21:37)
[2017-07-08] MEDS: THIAMINE HCL 100 MG TABLET (FP) PO SCH (21:37)
[2017-07-08] MEDS: hydrOXYzine PAMOATE 25 MG CAPSULE (FP) PO PRN (21:37)
[2017-07-09] MEDS: PRENATAL VITAMINS W/ FOLIC ACID TABLET (FP) PO SCH (10:47)
[2017-07-09] MEDS: SULFAMETHOXAZOLE/TRIMETHOPRIM 800MG/160MG D.S. TABLET PO SCH (10:47)
[2017-07-09] MEDS: BUDESONIDE/FORMETEROL FUMARATE 160/4.5 mcg INHALER IH SCH ×2 (10:48→22:06)
[2017-07-09] MEDS: DOLUTEGRAVIR SODIUM 50 MG TABLET PO SCH (10:48)
[2017-07-09] MEDS: DARUNAVIR 800 MG/COBICISTAT 150MG TABLET PO SCH (10:48)
[2017-07-09] MEDS: ACETAMINOPHEN 325 MG TABLET (FP) PO PRN (18:38)
[2017-07-09] MEDS: THIAMINE HCL 100 MG TABLET (FP) PO SCH (22:05)
[2017-07-09] MEDS: hydrOXYzine PAMOATE 25 MG CAPSULE (FP) PO PRN (22:07)
[2017-07-10] MEDS: PRENATAL VITAMINS W/ FOLIC ACID TABLET (FP) PO SCH (11:02)
[2017-07-10] MEDS: SULFAMETHOXAZOLE/TRIMETHOPRIM 800MG/160MG D.S. TABLET PO SCH (11:02)
[2017-07-10] MEDS: BUDESONIDE/FORMETEROL FUMARATE 160/4.5 mcg INHALER IH SCH ×2 (11:03→21:30)
[2017-07-10] MEDS: DOLUTEGRAVIR SODIUM 50 MG TABLET PO SCH (11:03)
[2017-07-10] MEDS: DARUNAVIR 800 MG/COBICISTAT 150MG TABLET PO SCH (11:03)
[2017-07-10] MEDS: THIAMINE HCL 100 MG TABLET (FP) PO SCH (21:30)
[2017-07-10] MEDS: hydrOXYzine PAMOATE 25 MG CAPSULE (FP) PO PRN (21:30)
[2017-07-11] MEDS: DARUNAVIR 800 MG/COBICISTAT 150MG TABLET PO SCH (10:10)
[2017-07-11] MEDS: DOLUTEGRAVIR SODIUM 50 MG TABLET PO SCH (10:10)
[2017-07-11] MEDS: BUDESONIDE/FORMETEROL FUMARATE 160/4.5 mcg INHALER IH SCH ×2 (10:11→22:02)
[2017-07-11] MEDS: SULFAMETHOXAZOLE/TRIMETHOPRIM 800MG/160MG D.S. TABLET PO SCH (10:11)
[2017-07-11] MEDS: PRENATAL VITAMINS W/ FOLIC ACID TABLET (FP) PO SCH (10:11)
[2017-07-11] MEDS: THIAMINE HCL 100 MG TABLET (FP) PO SCH (22:01)
[2017-07-11] MEDS: hydrOXYzine PAMOATE 25 MG CAPSULE (FP) PO PRN (22:02)
[2017-07-11] MEDS: ACETAMINOPHEN 325 MG TABLET (FP) PO PRN (22:03)
[2017-07-12 08:06] VITALS: BP 114/76; PULSE 81; TEMP 98.6
[2017-07-12] MEDS: DARUNAVIR 800 MG/COBICISTAT 150MG TABLET PO SCH (10:03)
[2017-07-12] MEDS: DOLUTEGRAVIR SODIUM 50 MG TABLET PO SCH (10:03)
[2017-07-12] MEDS: SULFAMETHOXAZOLE/TRIMETHOPRIM 800MG/160MG D.S. TABLET PO SCH (10:03)
[2017-07-12] MEDS: PRENATAL VITAMINS W/ FOLIC ACID TABLET (FP) PO SCH (10:03)
[2017-07-12] MEDS: BUDESONIDE/FORMETEROL FUMARATE 160/4.5 mcg INHALER IH SCH (10:04)
--- NOTE | 2017-07-12 10:04 | PN ---
Psychiatric Progress Note Vital Signs: Vital Signs Period Temp Pulse Resp BP Sys/Slater Pulse Ox Last 24 Hr 98.6 F 81 17-18 114/76 Date of Session: 07/12/17 Chief Complaint:: discharge visit HPI: The patient has addressed alcohol and nicotine dependence. ROS: HIV since 1993, asthma, COPD, seizures medically managed. Current Medications: Active Medications Generic Name Dose Route Start Last Admin Trade Name Freq PRN Reason Stop Dose Admin Acetaminophen 650 mg 06/28/17 13:34 07/11/17 22:03 Tylenol - PO 650 mg Q4H PRN Administration FEVER Al Hydroxide/Mg Hydroxide 30 ml 06/28/17 13:34 Mylanta Oral Suspension - PO Q6H PRN DYSPEPSIA Albuterol Sulfate 2 puff 06/28/17 13:38 07/08/17 18:40 Ventolin Hfa Inhaler - IH 2 puff Q4H PRN Administration ASTHMA Budesonide/Formoterol Fumarate 2 puff 06/28/17 22:00 07/11/17 22:02 Symbicort 160/4.5mcg - IH 2 puff BID SUNDAR Administration Eucalyptus/Menthol/Phenol/Sorbitol 1 each 06/28/17 13:34 Cepastat Lozenge - MM Q4H PRN SORE THROAT Guaifenesin 10 ml 06/28/17 13:34 Robitussin Dm - PO Q6H PRN COUGH Hydroxyzine Pamoate 25 mg 06/28/17 13:34 07/11/17 22:02 Vistaril - PO 25 mg Q4H PRN Administration AGITATION Ibuprofen 400 mg 06/28/17 13:34 Motrin - PO Q6H PRN Pain level 4-6 Loperamide HCl 4 mg 06/28/17 13:34 Imodium - PO Q6H PRN DIARRHEA Magnesium Citrate 300 ml 06/28/17 13:34 Citroma - PO Q48H PRN CONSTIPATION Magnesium Hydroxide 30 ml 06/28/17 13:34 Milk Of Magnesia - PO DAILY PRN CONSTIPATION Multivit/Folic Acid/Iron 1 tab 06/29/17 10:00 07/11/17 10:11 Vitamins (Sjr) - PO 1 tab DAILY SUNDAR Administration Pseudoephedrine/Triprolidine 1 combo 06/28/17 13:34 Actifed - PO TID PRN NASAL CONGESTION Thiamine HCl 100 mg 06/28/17 22:00 07/11/17 22:01 Vitamin B1 - PO 100 mg HS SUNDAR Administration Trimethoprim/Sulfamethoxazole 1 each 06/29/17 15:10 07/11/17 10:11 Bactrim Ds - PO 1 each DAILY SUNDAR Administration Current Side Effect: No Lab tests ordered: No Lab tests reviewed: Yes Provider note:: Patient has completed today his treatment and met his identified goals, will continue to address his issues at [facility]. He gained insight into his addiction, understands the negative impact of his drinking on major life areas, including physical health and motivated to continue maintain abstinence, he reports has been feeling much better, patient was encouraged to utilize all supports available to prevent relapses, patient is stable for discharge today. Total face to face time:: 35 Mental Status Exam - Mental Status Exam Alert and Oriented to: Time, Place, Person Cognitive Function: Good Patient Appearance: Well Groomed Mood: Hopeful Affect: Appropriate, Mood Congruent Patient Behavior: Appropriate, Cooperative Speech Pattern: Clear, Appropriate Voice Loudness: Normal Thought Process: Intact, Goal Oriented Thought Disorder: Not Present Hallucinations: Denies Suicidal Ideation: Denies Homicidal Ideation: Denies Insight/Judgement: Fair Sleep: Fair Appetite: Good Muscle strength/Tone: Normal Gait/Station: Normal Psychiatric Treatment Plan - Problem List (1) Alcohol dependence Current Visit: Yes (2) Nicotine dependence Current Visit: Yes (3) Asthma Current Visit: No (4) COPD (chronic obstructive pulmonary disease) Current Visit: No Qualifiers: COPD type: emphysema Emphysema type: unilateral Qualified Code(s): J43.0 - Unilateral pulmonary emphysema [MacLeod's syndrome] (5) HIV (human immunodeficiency virus infection) Current Visit: No
== END 2017-07-12 10:50 | disposition home or self-care (01) | DRG 772 ==
LOC: YASAS 10:17 → Y5N 13:43
PROVIDERS: ADMIT Psychiatry & Neurology Psychiatry; ATTEND Psychiatry & Neurology Psychiatry
PROC: HZ42ZZZ Group Counseling for Substance Abuse Treatment, Cognitive-Behavioral (ICD-10-PCS; principal; 2017-06-28)
DX: F10.20 Alcohol dependence, uncomplicated (principal); F17.210 Nicotine dependence, cigarettes, uncomplicated; J45.909 Unspecified asthma, uncomplicated; J43.0 Unilateral pulmonary emphysema [MacLeod's syndrome]; R76.11 Nonspecific reaction to tuberculin skin test without active tuberculosis; Z21 Asymptomatic human immunodeficiency virus [HIV] infection status; R63.4 Abnormal weight loss; Z68.20 Body mass index [BMI] 20.0-20.9, adult; F41.9 Anxiety disorder, unspecified
CPT/HCPCS: 36415; 71045-TC-FY; 80053; 81003; 81015; 85027; 86593; 93005; 93010